=== PATIENT | female | born 1940 | race Caucasian/White ===

== ENCOUNTER 2016-12-18 07:01 | Emergency (ER) | payer MEDICARE, OTHER ==
[2016-12-18] MEDS ORDERED: ONDANSETRON ODT 4 MG TAB ONE (07:26)
[2016-12-18] MEDS ORDERED: MORPHINE 4 MG/ML SYR ONE (07:28)
== END 2016-12-18 10:59 | disposition home or self-care (01) ==
LOC: ER 07:01
DX: T83.518A Infection and inflammatory reaction due to other urinary catheter, initial encounter (principal); N30.00 Acute cystitis without hematuria; Z46.6 Encounter for fitting and adjustment of urinary device; Z76.0 Encounter for issue of repeat prescription; I10 Essential (primary) hypertension; N31.9 Neuromuscular dysfunction of bladder, unspecified; F17.200 Nicotine dependence, unspecified, uncomplicated; J44.9 Chronic obstructive pulmonary disease, unspecified; Z86.73 Personal history of transient ischemic attack (TIA), and cerebral infarction without residual deficits
CPT/HCPCS: 51702; 81001; 87077; 87088; 87186; 96372; 99283; J2270

== ENCOUNTER 2016-12-26 15:59 | Emergency (ER) | payer MEDICARE, OTHER ==
[2016-12-27] MEDS ORDERED: cloNIDine 0.1 MG TAB ONE ×2 (03:47→03:48)
[2016-12-27] MEDS ORDERED: Carvedilol 6.25 MG TAB PO ONE (03:58)
== END 2016-12-27 04:10 ==
LOC: ER 15:59
DX: F32.0 Major depressive disorder, single episode, mild (principal); R45.851 Suicidal ideations; I10 Essential (primary) hypertension; F17.200 Nicotine dependence, unspecified, uncomplicated; F03.90 Unspecified dementia, unspecified severity, without behavioral disturbance, psychotic disturbance, mood disturbance, and anxiety; Z87.440 Personal history of urinary (tract) infections; Z79.2 Long term (current) use of antibiotics; Z86.73 Personal history of transient ischemic attack (TIA), and cerebral infarction without residual deficits; Z79.899 Other long term (current) drug therapy
CPT/HCPCS: 36415; 80053; 80307; 81001; 84439; 84443; 85025; 85610; 87088; 99285; G0480; 80320; 80329